=== PATIENT | male | born 1995 | race Two or more races ===

== ENCOUNTER 2020-01-28 21:53 | Emergency (ER) | payer OTHER ==
[2020-01-28] MEDS ORDERED: Sodium Chloride 0.9% 10 ML Syringe FLUSH PRN (22:07)
[2020-01-28] MEDS ORDERED: Sodium Chloride 0.9% 2.5 ML Syringe FLUSH PRN (22:07)
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
[2020-01-28 23:21] LABS: BLOOD UREA NITROGEN,BUN 14 mg/dL (7.0-18.0); CARBON DIOXIDE,CO2 26.4 mmol/L (21.0-32.0); CHLORIDE,CL 104 mmol/L (98-107); GLUCOSE RANDOM 97 mg/dL (74-106); LIPASE 91 U/L (73-393); POTASSIUM,K 3.3 mmol/L (3.5-5.1); SODIUM,NA 141 mmol/L (136-148)
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
== END 2020-01-29 00:10 | disposition home or self-care (01) ==
LOC: MW.ED 21:53
DX: M25.511 Pain in right shoulder (principal); E87.6 Hypokalemia; V86.56XA Driver of dirt bike or motor/cross bike injured in nontraffic accident, initial encounter
CPT/HCPCS: 36415; 71045; 71045-26; 72170; 72170-26; 73030-26-RT; 73030-RT; 80053; 83690; 84484; 85025; 99282; 99284-25

== ENCOUNTER 2024-04-09 19:43 | Emergency (ER) | payer BC, OTHER ==
[2024-04-09] MEDS ORDERED: Tetracaine HCl/PF 0.5% 4 ML Bottle EYEBOTH ONE (19:51)
[2024-04-09] MEDS: Diphtheria,Pertussis(Acell),Tetanus Vaccine 0.5 ML Syringe IM ONE (21:03)
[2024-04-09] MEDS: Fluorescein 1 MG Ophth Strip EYEBOTH ONE (21:06)
[2024-04-09] MEDS: Tetracaine HCl/PF 0.5% 4 ML Bottle EYEBOTH ONE (21:06)
[2024-04-09] MEDS: Erythromycin Base 0.5% Ophth Oint 1 GM Tube EYELF ONE (21:09)
== END 2024-04-09 21:26 | disposition home or self-care (01) ==
LOC: MW.ED 19:43
DX: S05.02XA Injury of conjunctiva and corneal abrasion without foreign body, left eye, initial encounter (principal); Z23 Encounter for immunization; Z75.8 Other problems related to medical facilities and other health care; W20.8XXA Other cause of strike by thrown, projected or falling object, initial encounter
CPT/HCPCS: 90715; 99283; A9270; J3490

== ENCOUNTER 2024-08-14 09:17 | Emergency (ER) | payer BC ==
[2024-08-14] MEDS: Ketorolac 30 MG/ML SDV IM ONE (12:03)
== END 2024-08-14 12:58 | disposition home or self-care (01) ==
LOC: MW.ED 09:17
DX: S93.602A Unspecified sprain of left foot, initial encounter (principal); W51.XXXA Accidental striking against or bumped into by another person, initial encounter
CPT/HCPCS: 73610; 73630; 96372; 99283; J1885; 99284

== ENCOUNTER 2024-12-01 21:40 | Emergency (ER) | payer BC ==
[2024-12-01] MEDS: Tetracaine HCl/PF 0.5% 4 ML Bottle EYELF ONE (21:51)
[2024-12-02] MEDS: Tetracaine HCl/PF 0.5% 4 ML Bottle ONE (00:03)
== END 2024-12-02 00:45 | disposition home or self-care (01) ==
LOC: MW.ED 21:40
DX: S01.112A Laceration without foreign body of left eyelid and periocular area, initial encounter (principal); H21.02 Hyphema, left eye; F17.200 Nicotine dependence, unspecified, uncomplicated; Z98.890 Other specified postprocedural states; W22.8XXA Striking against or struck by other objects, initial encounter
CPT/HCPCS: 12011; 70486; 99283; A9270; J3490